=== PATIENT | male | born 1970 | race Caucasian/White ===

== ENCOUNTER → 2017-01-17 | Outpatient (CLI) | payer OTHER ==
--- NOTE | 2017-01-17 14:12 | XR ---
EXAMINATION TYPE: XR knee complete RT DATE OF EXAM: 01/17/2017 COMPARISON: NONE HISTORY: Right knee pain TECHNIQUE: Three-view right knee FINDINGS: No joint effusion is evident. Joint spaces are preserved. No acute fractures are evident. IMPRESSION: 1. Normal three-view right knee
== END | disposition home or self-care (01) ==
LOC: RADXRMAIN 13:50
PROVIDERS: ATTEND Family Medicine
DX: M25.561 Pain in right knee (principal)

== ENCOUNTER → 2017-08-11 | Outpatient (CLI) | payer OTHER ==
--- NOTE | 2017-08-11 15:53 | XR ---
EXAMINATION TYPE: XR cervical spine comp DATE OF EXAM: 08/11/2017 COMPARISON: NONE HISTORY: Neck pain TECHNIQUE: Five-view cervical spine FINDINGS: Disc heights are preserved. Vertebral body heights are preserved. There is severe stenosis C3-4 on the right and mild foraminal narrowing at C3-4 on the left. Some mil d right foraminal narrowing at C4-5 C5-6 is present. Prevertebral space is normal. Posterior spinal lamellar line is intact. IMPRESSION: 1. C3-4 foraminal stenosis, severe on the right and mild on the left
== END | disposition home or self-care (01) ==
LOC: RADXRMAIN 15:25
PROVIDERS: ATTEND Family Medicine
DX: M54.2 Cervicalgia (principal)
CPT/HCPCS: 72050

== ENCOUNTER → 2017-09-05 | Outpatient (CLI) | payer OTHER ==
--- NOTE | 2017-09-06 09:05 | MR ---
EXAMINATION TYPE: MR cervical spine wo con DATE OF EXAM: 09/05/2017 COMPARISON: NONE HISTORY: 47-year-old male with Neck Pain for years. TECHNIQUE: Multiplanar, multisequence images of the cervical spine were acquired. FINDINGS: No craniocervical junction abnormality, predental space widening, or prevertebral soft tissue swellin g. Variable mild intervertebral disc desiccation throughout the cervical spine with posterior disc bulgi ng at various levels. Scattered mild facet degenerative changes also present. No suspicious bone marrow replacement. Alignment is maintained. At C2-C3, mild facet degenerative change without canal or foraminal stenosis. At C3-C4, broad-based disc osteophyte complex with uncovertebral joint and facet degenerative change. Changes result in [id number] left neuroforaminal stenosis with mild narrowing of the spinal ca nal. No cord abutment or cord flattening. At C4-C5, broad-based posterior disc bulge with superimposed right paracentral disc protrusion. Mild facet degenerative change. Changes result in mild narrowing of the bilateral neuroforamen and mild ov erall spinal canal stenosis. No significant cord abutment or cord flattening. At C5-C6, facet degenerative change causing [id number]-pp-vdjvyjco right neuroforaminal stenosis. No spinal canal stenosis. At C6-C7, there is posterior bulging disc with uncovertebral joint and facet degenerative change. Zahra nges result in mild to moderate bilateral neuroforaminal stenosis without significant spinal canal st enosis. At C7-T1, broad-based disc bulge with facet degenerative change. Mild narrowing of the left neural fo ramen. No spinal canal stenosis. No prevertebral or paravertebral soft tissue abnormality seen. Normal course and signal intensity of the cervical cord. IMPRESSION: 1. Mild multilevel degenerative disc disease with scattered facet/uncovertebral joint arthropathy. 2. Mild narrowing of the spinal canal at C3-C4 and C4-C5. No canal compromise or cord compression. 3. Variable mild neural foraminal stenoses as outlined above, mild to moderate on the left at C3-C4 a nd on both sides at C6-C7.
== END | disposition home or self-care (01) ==
LOC: RADMRIMAIN 15:07
PROVIDERS: ATTEND Family Medicine
DX: M48.02 Spinal stenosis, cervical region (principal); M99.71 Connective tissue and disc stenosis of intervertebral foramina of cervical region; M50.30 Other cervical disc degeneration, unspecified cervical region; M46.92 Unspecified inflammatory spondylopathy, cervical region
CPT/HCPCS: 72141

== ENCOUNTER → 2017-09-29 | Outpatient (CLI) | payer OTHER ==
[2017-09-29 13:25] VITALS: BMI 37.5
== END | disposition home or self-care (01) ==
LOC: MNTWWP 12:58
PROVIDERS: ATTEND Family Medicine
DX: E66.09 Other obesity due to excess calories (principal); Z68.37 Body mass index [BMI] 37.0-37.9, adult
CPT/HCPCS: 97802

== ENCOUNTER 2018-04-28 13:05 | Day surgery (SDC) | payer OTHER ==
[2018-04-26 10:07] VITALS: BMI 38.1
[~2018-04-28 13:05] MED LIST: LACTATED RINGERS 1,000 ML IV SCH
[2018-04-28 13:26] VITALS: RESP 18; TEMP 97.8
[2018-04-28] MEDS ORDERED: LIDOCAINE 1% 20 ML VIAL (10MG/ML) FOR IV START INTRADERMA ONE (13:26)
[2018-04-28] MEDS ORDERED: LACTATED RINGERS 1,000 ML IV ONE (13:26)
--- NOTE | 2018-04-28 13:52 | P.GSHP ---
History of Present Illness H&P Date: 04/28/18 CHIEF COMPLAINT: Colon screen HISTORY OF PRESENT ILLNESS: The patient is a 47 year-old male who presents for colon screen. Lower endoscopy was offered for further evaluation and management. PAST MEDICAL HISTORY: Please see list. PAST SURGICAL HISTORY: Please see list. MEDICATIONS: Please see list. ALLERGIES: Please see list. SOCIAL HISTORY: No illicit drug use FAMILY HISTORY: No reports of Crohn disease or ulcerative colitis. REVIEW OF ORGAN SYSTEMS: CONSTITUTIONAL: No reports of fevers or chills. PHYSICAL EXAM: VITAL SIGNS: Stable GENERAL: Well-developed pleasant in no acute distress. HEENT: No scleral icterus. Extraocular movements grossly intact. Moist buccal mucosa. NECK: Supple without lymphadenopathy. CHEST: Unlabored respirations. Equal bilateral excursions. CARDIOVASCULAR: Regular rate and rhythm. Distal 2+ pulses. ABDOMEN: Soft, nontender, nondistended. MUSCULOSKELETAL: No clubbing, cyanosis, or edema. ASSESSMENT: 1. Colon screen. PLAN: 1. Recommend proceeding with a lower endoscopy Past Medical History Additional Past Medical History / Comment(s): loose stools and lower abd discomfort and tenderness with palpation History of Any Multi-Drug Resistant Organisms: None Reported Additional Past Surgical History / Comment(s): pain procedures to back Past Anesthesia/Blood Transfusion Reactions: No Reported Reaction Smoking Status: Current every day smoker - Past Family History Father Family Medical History: Cancer Additional Family Medical History / Comment(s): melanoma Medications and Allergies Home Medications Medication Instructions Recorded Confirmed Type Ibuprofen 800 mg PO DAILY PRN 04/26/18 04/26/18 History Allergies Allergy/AdvReac Type Severity Reaction Status Date / Time No Known Allergies Allergy Verified 04/26/18 09:59 Surgical - Exam Vital Signs Temp Pulse Resp BP Pulse Ox 97.8 F 78 18 127/72 98 04/28/18 13:24 04/28/18 13:24 04/28/18 13:24 04/28/18 13:24 04/28/18 13:24
[2018-04-28] MEDS ORDERED: PROPOFOL 10 MG/ML 20 ML VIAL IV ONE (14:16)
--- NOTE | 2018-04-28 14:59 | P.PCN ---
Date of Procedure: 04/28/18 Description of Procedure: PREOPERATIVE DIAGNOSIS: Altered bowel function POSTOPERATIVE DIAGNOSIS: Multiple bowels function Multiple tubular adenomas throughout the colon. Sigmoid diverticulosis External hemorrhoids, grade 3. OPERATION: Colonoscopy to the ileocecal valve and appendiceal orifice. Colonoscopy with multiple hot snare polypectomies SURGEON: Marcela Negron MD. ANESTHESIA: MAC. INDICATIONS: The patient is a 47-year-old male who presents for change in bowel habits. Benefits and risks were described and informed consent was obtained. DESCRIPTION OF PROCEDURE: The patient had undergone Gatorade, MiraLAX and Dulcolax prep. He had been brought into the operating room and laid in the left lateral decubitus position. After adequate intravenous sedation, the rectum was examined with 2% lidocaine jelly. External hemorrhoids were encountered. The rectal tone was within normal limits. No lesions were palpated in the rectal vault. An Olympus colonoscope was advanced until the ileocecal valve and appendiceal orifice were clearly viewed. The prep was fair with visualization of the mucosal folds. The scope was removed with visualization of each mucosal fold. No scattered diverticulosis was encountered. Multiple colonic polyps were found and snare polypectomy. No evidence of focal colitis was found. Retroflexion of the scope demonstrated grade 3 internal hemorrhoids without active bleeding or inflammation. The colon was desufflated. The patient had tolerated the procedure well. Withdrawal time was over 6 minutes. FINDINGS: Internal hemorrhoids, grade 3 External hemorrhoids, grade 3. No arteriovenous malformations. Removal of 8 polyps higher risk tubular adenomas: - Snare polypectomy 5 cm from the anal verge, 11 mm flat villous adenoma polyp, rectum - Snare polypectomy 20 cm from the anal verge, 8 mm flat villous adenoma polyp, sigmoid colon - Snare polypectomy at 30 cm from the anal verge, 6 mm polyp, sigmoid colon - Snare polypectomy at 45 cm from the anal verge, 6 mm polyp, descending colon - Snare polypectomy at 55 cm from the anal verge, 5 mm polyp descending colon - Snare polypectomy at 70 cm from the anal verge, 4 mm polyp, proximal transverse colon - Snare polypectomy at ascending colon, 7 mm polyp. - Snare polypectomy at proximal ascending colon, 7 mm polyp. - Snare polypectomy at ileocecal valve, 6 mm polyp. Sigmoid diverticulosis with mild sigmoid diverticulitis RECOMMENDATIONS: Given severity of tubular adenomas, recommend repeat colonoscopy 1 year, 2019 Plan - Discharge Summary New Discharge Prescriptions: No Action Ibuprofen 800 mg PO DAILY PRN PRN Reason: Pain Discharge Medication List Ibuprofen 800 mg PO DAILY PRN 04/26/18 [History] Follow up Appointment(s)/Referral(s): Marcela Negron MD [STAFF PHYSICIAN] - 05/09/18 Patient Instructions/Handouts: Colorectal Polyps (IP), Diverticulosis Diet (GEN ), Colonoscopy (DC), Hemorrhoids (DC) Activity/Diet/Wound Care/Special Instructions: Repeat colonoscopy 2018 Discharge Disposition: HOME SELF-CARE
[2018-04-28 15:00] VITALS: PULSE 63
[2018-04-28 15:19] VITALS: BP 142/87
== END 2018-04-28 15:56 | disposition home or self-care (01) ==
LOC: ORWHC2ENDO 13:05
PROVIDERS: ATTEND Surgery Plastic and Reconstructive Surgery
DX: Z12.11 Encounter for screening for malignant neoplasm of colon (principal); D12.2 Benign neoplasm of ascending colon; K64.4 Residual hemorrhoidal skin tags; D12.3 Benign neoplasm of transverse colon; D12.5 Benign neoplasm of sigmoid colon; D12.0 Benign neoplasm of cecum; F17.200 Nicotine dependence, unspecified, uncomplicated; Z79.1 Long term (current) use of non-steroidal anti-inflammatories (NSAID); K57.30 Diverticulosis of large intestine without perforation or abscess without bleeding
CPT/HCPCS: 88305; 45380; 45385; J2704

== ENCOUNTER → 2018-08-10 | Outpatient (CLI) | payer OTHER ==
--- NOTE | 2018-08-10 14:49 | XR ---
EXAMINATION TYPE: XR abdomen complete w decub DATE OF EXAM: 08/10/2018 CLINICAL HISTORY: Left upper quadrant pain for 6 weeks. TECHNIQUE: Supine, upright, and left side down lateral decubitus views of the abdomen are obtained. COMPARISON: None. FINDINGS: Scattered gas is seen in non-distended stomach and small bowel loops. Gas and fecal mater ial is seen in non-distended colon. Occasional right-sided pelvic phlebolith is seen. No pneumoperito neum or visceromegaly is identified. Visualized lung bases are clear. Visualized osseous structures a re intact. IMPRESSION: Overall nonobstructive bowel gas pattern.
== END | disposition home or self-care (01) ==
LOC: RADXRMAIN 13:43
PROVIDERS: ATTEND Family Medicine
DX: R10.9 Unspecified abdominal pain (principal)
CPT/HCPCS: 74021

== ENCOUNTER 2019-07-04 09:20 | Day surgery (SDC) | payer OTHER ==
[2019-07-03 11:27] VITALS: BMI 32.7
--- NOTE | 2019-07-04 08:40 | P.GSHP ---
History of Present Illness H&P Date: 07/04/19 CHIEF COMPLAINT: Colon screen HISTORY OF PRESENT ILLNESS: The patient is a 49-year-old male who presents for colon screen. Lower endoscopy was offered for further evaluation and management. PAST MEDICAL HISTORY: Please see list. PAST SURGICAL HISTORY: Please see list. MEDICATIONS: Please see list. ALLERGIES: Please see list. SOCIAL HISTORY: No illicit drug use FAMILY HISTORY: No reports of Crohn disease or ulcerative colitis. REVIEW OF ORGAN SYSTEMS: CONSTITUTIONAL: No reports of fevers or chills. PHYSICAL EXAM: VITAL SIGNS: Stable GENERAL: Well-developed pleasant in no acute distress. HEENT: No scleral icterus. Extraocular movements grossly intact. Moist buccal mucosa. NECK: Supple without lymphadenopathy. CHEST: Unlabored respirations. Equal bilateral excursions. CARDIOVASCULAR: Regular rate and rhythm. Distal 2+ pulses. ABDOMEN: Soft, nontender, nondistended. MUSCULOSKELETAL: No clubbing, cyanosis, or edema. ASSESSMENT: 1. Colon screen. PLAN: 1. Recommend proceeding with a lower endoscopy Past Medical History Past Medical History: Musculoskeletal Disorder, Osteoarthritis (OA) Additional Past Medical History / Comment(s): hx. colon polyps, herniated disc, bone spurs History of Any Multi-Drug Resistant Organisms: None Reported Additional Past Surgical History / Comment(s): pain procedures to back, colonscopy Past Anesthesia/Blood Transfusion Reactions: No Reported Reaction Smoking Status: Current every day smoker - Past Family History Father Family Medical History: Cancer Additional Family Medical History / Comment(s): melanoma Medications and Allergies Home Medications Medication Instructions Recorded Confirmed Type Ibuprofen 800 mg PO DAILY PRN 04/26/18 07/03/19 History HYDROcodone/APAP 10-325MG [[place] 1 tab PO QID 07/03/19 07/03/19 History 10-325] Allergies Allergy/AdvReac Type Severity Reaction Status Date / Time No Known Allergies Allergy Verified 07/03/19 11:29
[~2019-07-04 09:20] MED LIST changes: +LIDOCAINE 1% 20 ML VIAL (10MG/ML) FOR IV START INTRADERMA PRN
[2019-07-04] MEDS ORDERED: LACTATED RINGERS 1,000 ML IV ONE (10:10)
[2019-07-04] MEDS ORDERED: LIDOCAINE 1% 20 ML VIAL (10MG/ML) FOR IV START INTRADERMA ONE (10:18)
[2019-07-04 10:26] VITALS: TEMP 97.2
[2019-07-04] MEDS ORDERED: PROPOFOL 10 MG/ML 20 ML VIAL IV ONE (10:49)
--- NOTE | 2019-07-04 11:31 | P.PCN ---
Date of Procedure: 07/04/19 Description of Procedure: PREOPERATIVE DIAGNOSIS: Personal history of high-risk colon polyps Colonoscopy screening POSTOPERATIVE DIAGNOSIS: Personal history of high-risk colon polyps Colonoscopy screening Tubular adenoma cecum Tubular adenoma ascending colon Tubular adenoma hepatic flexure Tubular adenoma transverse colon Internal hemorrhoids, grade 2 External hemorrhoids, grade 2 OPERATION: Colonoscopy to the ileocecal valve and appendiceal orifice. Colonoscopy with multiple hot snare polypectomies Colonoscopy with cold forceps biopsies SURGEON: Marcela Negron MD. ANESTHESIA: MAC. INDICATIONS: The patient is an 49-year-old male who presents personal history of high-risk colon polyps. Last colonoscopy within 5 years. Benefits and risks were described and informed consent was obtained. DESCRIPTION OF PROCEDURE: The patient had undergone Suprep. He had been brought into the operating room and laid in the left lateral decubitus position. After adequate intravenous sedation, the rectum was examined with 2% lidocaine jelly. The prostate was unremarkable. External hemorrhoids were encountered. The rectal tone was within normal limits. No lesions were palpated in the rectal vault. An Olympus colonoscope was advanced until the ileocecal valve and appendiceal orifice were clearly viewed. The prep was fair. No sigmoid diverticulosis was encountered. Multiple colonic polyps were found and snare polypectomy. No evidence of focal colitis was found. Retroflexion of the scope demonstrated grade 2 internal hemorrhoids without active bleeding or inflammation. The colon was desufflated. The patient had tolerated the procedure well. Withdrawal time was over 6 minutes. FINDINGS: Aronchick preparation quality scale 3 (1-5) Internal hemorrhoids, grade 2 External hemorrhoids, grade 2 No arteriovenous malformations. No sigmoid diverticulosis Removal of 6 polyps from the proximal, mid transverse colon and descending colon: - Snare polypectomy ascending colon, 5 mm tubulovillous adenoma polyp. - Snare polypectomy mid transverse colon flexure, 8 mm flat villous adenoma polyp. - Snare polypectomy hepatic flexure, 6 mm flat villous adenoma polyp. - Snare polypectomy proximal transverse colon x 2, 6 and 7 mm flat villous adenoma polyp. - Cold forceps biopsy at cecum, 4 mm polyp. No focal colitis. RECOMMENDATIONS: 1. Given severity of tubular adenomas, recommend repeat colonoscopy 1 years, 2020 2. Recommend 2-day colonoscopy prep Plan - Discharge Summary Discharge Rx Participant: No New Discharge Prescriptions: No Action Ibuprofen 800 mg PO DAILY PRN PRN Reason: Pain HYDROcodone/APAP 10-325MG [[place] 10-325] 1 tab PO QID Discharge Medication List Ibuprofen 800 mg PO DAILY PRN 04/26/18 [History] HYDROcodone/APAP 10-325MG [[place] 10-325] 1 tab PO QID 07/03/19 [History] Follow up Appointment(s)/Referral(s): Marcela Negron MD [STAFF PHYSICIAN] - 07/17/19 Patient Instructions/Handouts: Colorectal Polyps (GEN) Activity/Diet/Wound Care/Special Instructions: Repeat colonoscopy 2 years, 2021 Discharge Disposition: HOME SELF-CARE
[2019-07-04 11:46] VITALS: PULSE 62; RESP 18
[2019-07-04 11:47] VITALS: BP 124/79
== END 2019-07-04 12:00 | disposition home or self-care (01) ==
LOC: ORWHC2ENDO 09:20
PROVIDERS: ATTEND Surgery Plastic and Reconstructive Surgery
DX: Z12.11 Encounter for screening for malignant neoplasm of colon (principal); D12.0 Benign neoplasm of cecum; D12.3 Benign neoplasm of transverse colon; K63.5 Polyp of colon; K64.1 Second degree hemorrhoids; K64.4 Residual hemorrhoidal skin tags; M19.90 Unspecified osteoarthritis, unspecified site; G89.29 Other chronic pain; M54.9 Dorsalgia, unspecified; F17.200 Nicotine dependence, unspecified, uncomplicated; Z80.8 Family history of malignant neoplasm of other organs or systems; Z79.891 Long term (current) use of opiate analgesic; Z79.1 Long term (current) use of non-steroidal anti-inflammatories (NSAID); Z86.010 Personal history of colon polyps
CPT/HCPCS: 88305; 45380; 45385; J2704

== ENCOUNTER → 2020-05-07 | Day surgery (SDC) | payer OTHER ==
[2020-05-05 15:03] VITALS: BMI 32.7
[~2020-05-07] MED LIST changes: -LIDOCAINE 1% 20 ML VIAL (10MG/ML) FOR IV START INTRADERMA PRN; +LIDOCAINE 1% INJ 10MG/ML (20 ML MDV) ONE; +MIDAZOLAM 2 MG/2 ML VIAL ONE; +PROPOFOL 10 MG/ML 20 ML VIAL IV ONE; +fentaNYL (PF) 50 MCG/ML 2 ML AMP ONE
--- NOTE | 2020-05-07 08:58 | P.GSHP ---
History of Present Illness H&P Date: 05/07/20 CHIEF COMPLAINT: Colon screen HISTORY OF PRESENT ILLNESS: The patient is a 50-year-old male who presents for colon screen. Lower endoscopy was offered for further evaluation and management. PAST MEDICAL HISTORY: Please see list. PAST SURGICAL HISTORY: Please see list. MEDICATIONS: Please see list. ALLERGIES: Please see list. SOCIAL HISTORY: No illicit drug use FAMILY HISTORY: No reports of Crohn disease or ulcerative colitis. REVIEW OF ORGAN SYSTEMS: CONSTITUTIONAL: No reports of fevers or chills. PHYSICAL EXAM: VITAL SIGNS: Stable GENERAL: Well-developed pleasant in no acute distress. HEENT: No scleral icterus. Extraocular movements grossly intact. Moist buccal mucosa. NECK: Supple without lymphadenopathy. CHEST: Unlabored respirations. Equal bilateral excursions. CARDIOVASCULAR: Regular rate and rhythm. Distal 2+ pulses. ABDOMEN: Soft, nontender, nondistended. MUSCULOSKELETAL: No clubbing, cyanosis, or edema. ASSESSMENT: 1. Colon screen. PLAN: 1. Recommend proceeding with a lower endoscopy Past Medical History Past Medical History: Musculoskeletal Disorder, Osteoarthritis (OA) Additional Past Medical History / Comment(s): hx. colon polyps, herniated disc, bone spurs History of Any Multi-Drug Resistant Organisms: None Reported Additional Past Surgical History / Comment(s): pain procedures to back, colonscopy, Past Anesthesia/Blood Transfusion Reactions: No Reported Reaction Smoking Status: Current every day smoker - Past Family History Father Family Medical History: Cancer Additional Family Medical History / Comment(s): melanoma Medications and Allergies Home Medications Medication Instructions Recorded Confirmed Type No Known Home Medications 05/05/20 05/05/20 History Allergies Allergy/AdvReac Type Severity Reaction Status Date / Time No Known Allergies Allergy Verified 07/03/19 11:29
[2020-05-07 10:54] VITALS: RESP 16; TEMP 97.7
--- NOTE | 2020-05-07 12:05 | P.PCN ---
Date of Procedure: 05/07/20 Description of Procedure: PREOPERATIVE DIAGNOSIS: Personal history of colon polyps, high-risk POSTOPERATIVE DIAGNOSIS: Tubular adenoma descending colon Tubular adenoma ascending colon Sigmoid colitis Internal and external hemorrhoids, grade 3 OPERATION: Colonoscopy to the ileocecal valve and appendiceal orifice, cecum Colonoscopy with multiple hot snare polypectomies SURGEON: Marcela Negron MD. ANESTHESIA: MAC. INDICATIONS: The patient is an 50-year-old male who presents personal history of colon polyps. Last colonoscopy 5 years. Benefits and risks were described and informed consent was obtained. DESCRIPTION OF PROCEDURE: The patient had undergone Suprep. He had been brought into the operating room and laid in the left lateral decubitus position. After adequate intravenous sedation, the rectum was examined with 2% lidocaine jelly. The prostate was unremarkable. External hemorrhoids were encountered. The rectal tone was within normal limits. No lesions were palpated in the rectal vault. An Olympus colonoscope was advanced until the cecum, ileocecal valve and appendiceal orifi ce that was obscured by semisolid stool. The prep was fair to poor involving the ascending colon and cecum. Colitis was found along the sigmoid colon. Multiple colonic polyps were found and snare polypectomy. Retroflexion of the scope demonstrated grade 3 internal hemorrhoids without active bleeding or inflammation. The colon was desufflated. The patient had tolerated the procedure well. Withdrawal time was over 6 minutes. FINDINGS: Aronchick preparation quality scale 3 (1-5) Internal hemorrhoids, grade 3 with recent inflammation and bleeding External hemorrhoids, grade 3 No arteriovenous malformations. Semi-colitis Removal of 2 polyps from the proximal, mid transverse colon and descending colon: - Snare polypectomy ascending colon, 4 mm tubulovillous adenoma polyp. - Snare polypectomy descending colon, 6 mm flat villous adenoma polyp. No focal colitis. RECOMMENDATIONS: Given severity of tubular adenomas, recommend repeat colonoscopy years, 2022 Plan - Discharge Summary Discharge Rx Participant: No New Discharge Prescriptions: Continue No Known Home Medications Discharge Medication List No Known Home Medications 05/05/20 [History] Follow up Appointment(s)/Referral(s): Marcela Negron MD [STAFF PHYSICIAN] - As Needed Patient Instructions/Handouts: Colorectal Polyps (GEN), Infectious Colitis (ED), Hemorrhoids (DC) Activity/Diet/Wound Care/Special Instructions: Repeat colonoscopy 3 years, 2022 Discharge Disposition: HOME SELF-CARE
[2020-05-07 12:13] VITALS: BP 104/67; PULSE 53
== END | disposition home or self-care (01) ==
LOC: ORWHC2ENDO 10:33
PROVIDERS: ATTEND Surgery Plastic and Reconstructive Surgery
DX: Z12.11 Encounter for screening for malignant neoplasm of colon (principal); D12.4 Benign neoplasm of descending colon; D12.2 Benign neoplasm of ascending colon; K64.2 Third degree hemorrhoids; K64.4 Residual hemorrhoidal skin tags; K52.9 Noninfective gastroenteritis and colitis, unspecified; Z86.010 Personal history of colon polyps; M19.90 Unspecified osteoarthritis, unspecified site; F17.210 Nicotine dependence, cigarettes, uncomplicated; Z98.890 Other specified postprocedural states
CPT/HCPCS: 88305; 45385; J2250; J2001; J3010; J2704

== ENCOUNTER 2021-05-18 10:51 | Day surgery (SDC) | payer SELFPAY ==
[2021-05-15 14:16] VITALS: BMI 34.7
--- NOTE | 2021-05-18 07:47 | P.GSHP ---
History of Present Illness H&P Date: 05/18/21 CHIEF COMPLAINT: Colon screen HISTORY OF PRESENT ILLNESS: The patient is a 51-year-old male who presents for colon screen. Lower endoscopy was offered for further evaluation and management. PAST MEDICAL HISTORY: Please see list. PAST SURGICAL HISTORY: Please see list. MEDICATIONS: Please see list. ALLERGIES: Please see list. SOCIAL HISTORY: No illicit drug use FAMILY HISTORY: No reports of Crohn disease or ulcerative colitis. REVIEW OF ORGAN SYSTEMS: CONSTITUTIONAL: No reports of fevers or chills. PHYSICAL EXAM: VITAL SIGNS: Stable GENERAL: Well-developed pleasant in no acute distress. HEENT: No scleral icterus. Extraocular movements grossly intact. Moist buccal mucosa. NECK: Supple without lymphadenopathy. CHEST: Unlabored respirations. Equal bilateral excursions. CARDIOVASCULAR: Regular rate and rhythm. Distal 2+ pulses. ABDOMEN: Soft, nontender, nondistended. MUSCULOSKELETAL: No clubbing, cyanosis, or edema. ASSESSMENT: 1. Colon screen. PLAN: 1. Recommend proceeding with a lower endoscopy Past Medical History Past Medical History: Musculoskeletal Disorder, Osteoarthritis (OA) Additional Past Medical History / Comment(s): hx. colon polyps, herniated disc, bone spurs, CHRONIC BACK PAIN History of Any Multi-Drug Resistant Organisms: None Reported Additional Past Surgical History / Comment(s): pain procedures for back, colonscopy, Past Anesthesia/Blood Transfusion Reactions: No Reported Reaction Smoking Status: Current every day smoker - Past Family History Father Family Medical History: Cancer Additional Family Medical History / Comment(s): skin cancer Medications and Allergies Home Medications Medication Instructions Recorded Confirmed Type No Known Home Medications 05/05/20 05/15/21 History Allergies Allergy/AdvReac Type Severity Reaction Status Date / Time No Known Allergies Allergy Verified 05/15/21 14:00
[2021-05-18 11:16] VITALS: TEMP 98
[2021-05-18] MEDS ORDERED: LIDOCAINE 1% (10MG/ML) FOR IV START INTRADERMA ONE (11:26)
[2021-05-18] MEDS ORDERED: LACTATED RINGERS 1,000 ML IV ONE (11:26)
[2021-05-18] MEDS ORDERED: LIDOCAINE 1% INJ 10MG/ML (20 ML MDV) ONE (12:16)
[2021-05-18] MEDS ORDERED: PROPOFOL 10 MG/ML 20 ML VIAL IV ONE (12:16)
--- NOTE | 2021-05-18 12:43 | P.PCN ---
Date of Procedure: 05/18/21 Description of Procedure: PREOPERATIVE DIAGNOSIS: Personal history of colon polyps POSTOPERATIVE DIAGNOSIS: Personal history of colon polyps Tubular adenoma descending colon Tubular adenoma sigmoid colon Sigmoid diverticulosis Internal hemorrhoids, grade 2 OPERATION: Colonoscopy to the ileocecal valve and appendiceal orifice, cecum Colonoscopy with hot snare polypectomy Colonoscopy with cold forceps biopsy SURGEON: Marcela Negron MD. ANESTHESIA: MAC. INDICATIONS: The patient is an 51-year-old male who presents personal history of colon polyps. Benefits and risks were described and informed consent was obtained. DESCRIPTION OF PROCEDURE: The patient had undergone S[place]ab prep. The patient had been brought into the operating room and laid in the left lateral decubitus position. After adequate intravenous sedation, the rectum was examined with 2% lidocaine jelly. The prostate was unremarkable. External hemorrhoids were encountered. The rectal tone was within normal limits. No lesions were palpated in the rectal vault. An Olympus colonoscope was advanced until the cecum, ileocecal valve and appendiceal orifice were clearly viewed. The prep was fair. Sigmoid diverticulosis was encountered. Colonic polyps were found and removed. No evidence of focal colitis was found. Retroflexion of the scope demonstrated grade 2 internal hemorrhoids without active bleeding or inflammation. The colon was desufflated. The patient had tolerated the procedure well. Withdrawal time was over 6 minutes. FINDINGS: Aronchick preparation quality scale 3 (1-5) Internal hemorrhoids, grade 2 External hemorrhoids, grade 2 No arteriovenous malformations. Sigmoid diverticulosis Removal of 2 polyps: - Snare polypectomy 40 cm from the anal verge, 5 mm tubulovillous adenoma polyp, descending colon - Cold forceps biopsy at 30 cm from the anal verge, 4 mm polyp, sigmoid colon No focal colitis. RECOMMENDATIONS: Repeat colonoscopy in 3 years2023 Plan - Discharge Summary Discharge Rx Participant: No New Discharge Prescriptions: No Action No Known Home Medications Discharge Medication List No Known Home Medications 05/05/20 [History] Follow up Appointment(s)/Referral(s): Marcela Negron MD [STAFF PHYSICIAN] - As Needed Patient Instructions/Handouts: Colorectal Polyps (IP), Diverticulosis Diet (GEN) Activity/Diet/Wound Care/Special Instructions: Repeat colonoscopy 3 years, 2023 Discharge Disposition: HOME SELF-CARE
[2021-05-18 12:44] VITALS: BP 142/85; PULSE 63; RESP 18
== END 2021-05-18 13:18 | disposition home or self-care (01) ==
LOC: ORWHC2ENDO 10:51
PROVIDERS: ATTEND Surgery Plastic and Reconstructive Surgery
DX: Z86.010 Personal history of colon polyps (principal); Z12.11 Encounter for screening for malignant neoplasm of colon; D12.4 Benign neoplasm of descending colon; D12.5 Benign neoplasm of sigmoid colon; K57.30 Diverticulosis of large intestine without perforation or abscess without bleeding; K64.1 Second degree hemorrhoids; M19.90 Unspecified osteoarthritis, unspecified site; F17.210 Nicotine dependence, cigarettes, uncomplicated; G89.29 Other chronic pain; M54.9 Dorsalgia, unspecified; M77.9 Enthesopathy, unspecified; Z80.8 Family history of malignant neoplasm of other organs or systems
CPT/HCPCS: 88305; 45380; 45385; J2001; J2704

== ENCOUNTER 2023-04-28 10:04 | Day surgery (SDC) | payer OTHER ==
[2023-04-26 16:11] VITALS: BMI 35.9
[~2023-04-28 10:04] MED LIST changes: -LIDOCAINE 1% INJ 10MG/ML (20 ML MDV) ONE; -MIDAZOLAM 2 MG/2 ML VIAL ONE; -PROPOFOL 10 MG/ML 20 ML VIAL IV ONE; -fentaNYL (PF) 50 MCG/ML 2 ML AMP ONE
--- NOTE | 2023-04-28 10:21 | P.GSHP ---
History of Present Illness H&P Date: 04/28/23 CHIEF COMPLAINT: GERD and colon screen HISTORY OF PRESENT ILLNESS: The patient is a 52-year-old male who presents with gastroesophageal reflux disease and need for colon screen. Upper and lower endoscopy were offered for further evaluation and management. PAST MEDICAL HISTORY: Please see list. PAST SURGICAL HISTORY: Please see list. MEDICATIONS: Please see list. ALLERGIES: Please see list. SOCIAL HISTORY: No illicit drug use FAMILY HISTORY: No reports of Crohn disease or ulcerative colitis. REVIEW OF ORGAN SYSTEMS: CONSTITUTIONAL: No reports of fevers or chills. GI: Denies any blood in stools or constipation. PHYSICAL EXAM: VITAL SIGNS: Stable GENERAL: Well-developed pleasant in no acute distress. HEENT: No scleral icterus. Extraocular movements grossly intact. Moist buccal mucosa. NECK: Supple without lymphadenopathy. CHEST: Unlabored respirations. Equal bilateral excursions. CARDIOVASCULAR: Regular rate and rhythm. Distal 2+ pulses. ABDOMEN: Soft, nondistended. MUSCULOSKELETAL: No clubbing, cyanosis, or edema. ASSESSMENT: 1. Gastroesophageal reflux disease 2. Colon screen. PLAN: 1. Recommend proceeding with an upper and lower endoscopy Past Medical History Past Medical History: Hyperlipidemia, Musculoskeletal Disorder, Osteoarthritis (OA) Additional Past Medical History / Comment(s): Diverticulitis. Herniated disc, bone spurs, CHRONIC BACK PAIN. History of Any Multi-Drug Resistant Organisms: None Reported Additional Past Surgical History / Comment(s): Pain procedures for back, colonoscopies. Past Anesthesia/Blood Transfusion Reactions: No Reported Reaction Past Psychological History: No Psychological Hx Reported Smoking Status: Former smoker, Vaper Past Alcohol Use History: None Reported Additional Past Alcohol Use History / Comment(s): Started smoking at age 15, smoked 1ppd, quit smoking Jun 2021. Now vapes. Past Drug Use History: None Reported - Past Family History Father Family Medical History: Cancer Additional Family Medical History / Comment(s): Skin cancer, "then cancer went all through his body". Medications and Allergies Home Medications Medication Instructions Recorded Confirmed Type Ibuprofen 800 mg PO Q8H PRN 04/26/23 04/26/23 History Allergies Allergy/AdvReac Type Severity Reaction Status Date / Time No Known Allergies Allergy Verified 04/26/23 15:47
[2023-04-28 10:45] VITALS: RESP 16; TEMP 97.7
[2023-04-28] MEDS ORDERED: PROPOFOL 10 MG/ML 20 ML VIAL IV ONE (11:02)
[2023-04-28] MEDS ORDERED: LIDOCAINE 1% INJ 10MG/ML (20 ML MDV) ONE (11:02)
--- NOTE | 2023-04-28 11:17 | P.PCN ---
Date of Procedure: 04/28/23 Description of Procedure: PREOPERATIVE DIAGNOSIS: GI bleeding POSTOPERATIVE DIAGNOSIS: Gastroesophageal reflux disease. Gastritis. Diaphragmatic hiatal hernia OPERATION: Esophagogastroduodenoscopy with biopsies along the esophagus, antrum and duodenum SURGEON: Marcela Negron MD ANESTHESIA: MAC. INDICATIONS: The patient is a 52-year-old male who presents with reflux disease. Benefits and risks of the procedure were described. Informed consent was obtained. DESCRIPTION: The patient was brought into the endoscopy suite and laid in the left lateral decubitus position. An Olympus gastroscope was passed along the posterior oropharynx down to the distal esophagus where the squamocolumnar junction was encountered at 43 cm from the incisors. The stomach was entered and no bile reflux was found. Additional findings are listed below. Biopsies with cold forceps were obtained of the antrum. The first through third portion of the duodenum was examined. Retroflexion of the scope confirmed Hill grade 3 lower esophageal valve. The squamocolumnar junction demonstrated LA grade B erosive esophagitis. The stomach was desufflated. The patient tolerated the procedure well. FINDINGS: Squamocolumnar junction 43 cm from the incisors. Diaphragmatic hiatus at 45 cm. Hiatal hernia, 2 cm Hill grade 3 lower esophageal valve. LA grade B erosive esophagitis. Biopsies obtained Biopsies obtained of the duodenum. Chronic gastritis with biopsies obtained. RECOMMENDATIONS: Upper endoscopy as needed.
--- NOTE | 2023-04-28 11:39 | P.PCN ---
Date of Procedure: 04/28/23 Description of Procedure: PREOPERATIVE DIAGNOSIS: History of colon polyp Colonoscopy screening. GI bleed POSTOPERATIVE DIAGNOSIS: Internal and external hemorrhoids, grade 4 without bleeding OPERATION: Colonoscopy to the cecum, ileocecal valve and appendiceal orifice. SURGEON: Marcela Negron MD. ANESTHESIA: MAC. INDICATIONS: The patient is a 52-year-old male who presents personal history of colon polyp and GI bleed. Benefits and risks were described and informed consent was obtained. DESCRIPTION OF PROCEDURE: The patient had undergone Golytely prep. The patient had been brought into the operating room and laid in the left lateral decubitus position. After adequate intravenous sedation, the rectum was examined with 2% lidocaine jelly. Prostate was unremarkable. External hemorrhoids were encountered. The rectal tone was within normal limits. No lesions were palpated in the rectal vault. An Olympus colonoscope was advanced until the cecum, ileocecal valve and appendiceal orifice were clearly viewed. The prep was good. No large scattered diverticulosis was encountered. No colonic polyps were found. No evidence of focal colitis was found. Retroflexion of the scope demonstrated grade 3 internal hemorrhoids without active bleeding or inflammation. The colon was desufflated. The patient had tolerated the procedure well. Withdrawal time was over 6 minutes. FINDINGS: Aronchick preparation quality scale 2 (1-5) Internal hemorrhoids, grade 3 External prolapsed hemorrhoids, grade 3 No arteriovenous malformations. No adenomatous polyps. No focal colitis. RECOMMENDATIONS: Lower endoscopy in 2027 Plan - Discharge Summary Discharge Rx Participant: No New Discharge Prescriptions: Discontinued Ibuprofen 800 mg PO Q8H PRN PRN Reason: Pain Follow up Appointment(s)/Referral(s): Marcela Negron MD [STAFF PHYSICIAN] - 05/24/23 3:30 pm Patient Instructions/Handouts: Rectal Bleeding (ED), Hemorrhoids (GEN) Activity/Diet/Wound Care/Special Instructions: Repeat colonoscopy years, 2027 Discharge Disposition: HOME SELF-CARE
[2023-04-28 11:54] VITALS: BP 120/79; PULSE 51
== END 2023-04-28 12:28 | disposition home or self-care (01) ==
LOC: ORWHC2ENDO 10:04
PROVIDERS: ATTEND Surgery Plastic and Reconstructive Surgery
DX: Z12.11 Encounter for screening for malignant neoplasm of colon (principal); K29.50 Unspecified chronic gastritis without bleeding; K21.00 Gastro-esophageal reflux disease with esophagitis, without bleeding; K64.4 Residual hemorrhoidal skin tags; K64.2 Third degree hemorrhoids; K44.9 Diaphragmatic hernia without obstruction or gangrene; E78.5 Hyperlipidemia, unspecified; M19.90 Unspecified osteoarthritis, unspecified site; G89.29 Other chronic pain; Z87.891 Personal history of nicotine dependence; Z80.9 Family history of malignant neoplasm, unspecified; Z79.899 Other long term (current) drug therapy; Z98.890 Other specified postprocedural states; Z86.010 Personal history of colon polyps
CPT/HCPCS: 88305; 45378; 43239; J2001; J2704; 45380